=== PATIENT | male | born 1975 | race Caucasian/White ===

== ENCOUNTER → 2019-08-04 | Outpatient (CLI) | payer BC, OTHER | LOC: ULTRA 11:35 | PROVIDERS: ATTEND Family Medicine | DX: I65.29 Occlusion and stenosis of unspecified carotid artery (principal) ==

== ENCOUNTER → 2019-08-12 | Outpatient (CLI) | payer BC, OTHER | LOC: CAT 08-10 09:36 → LABMALL 08:47 → CAT 10:50 | PROVIDERS: ATTEND Surgery Vascular Surgery | DX: J32.4 Chronic pansinusitis (principal); M50.323 Other cervical disc degeneration at C6-C7 level; R22.1 Localized swelling, mass and lump, neck; Z01.818 Encounter for other preprocedural examination ==